=== PATIENT | female | born 1985 | race African-American/Black ===

== ENCOUNTER 2016-10-28 09:17 | Emergency (ER) | payer OTHER ==
[2016-10-28 09:26] VITALS: TEMP 98; BMI 29.0
--- NOTE | 2016-10-28 09:46 | PDOC ---
[id number] Timing/Duration: reports: other Associated Symptoms: reports: shortness of breath, wheezing. denies: cough, fever/chills, nasal congestion, nasal drainage, sore throat <Kaylee DalyAdrián - Last Filed: 10/28/16 11:29> <JoeFavian - Last Filed: 11/01/16 09:17> - General Chief Complaint: Shortness of Breath Stated Complaint: Asthma Time Seen by Provider: 10/28/16 09:26 Past History - Past Medical History Asthma: Yes Other medical history: fibroids - Psycho/Social/Smoking Cessation Hx Suicidal Ideation: No Smoking History: Never smoked Have you smoked in the past 12 months: Yes Information on smoking cessation initiated: No <Greenlandic,KayleeDarin - Last Filed: 10/28/16 11:29> <Favian Diaz - Last Filed: 11/01/16 09:17> - Past Medical History Allergies/Adverse Reactions: Allergies Allergy/AdvReac Type Severity Reaction Status Date / Time Sulfa (Sulfonamide Allergy Severe Verified 10/28/16 09:20 Antibiotics) Home Medications: Ambulatory Orders Albuterol Sulfate [Proair Respiclick] 90 mcg IH DAILY 10/28/16 Fluticasone Propionate [Flovent Diskus] 100 mcg IH DAILY #1 blst.w.dev 10/28/16 Montelukast Na [Singulair -] 10 mg PO HS 10/28/16 Prednisone [Deltasone -] 20 mg PO DAILY #11 tablet 10/28/16 Review of Systems - Review of Systems Constitutional: No: Chills, Fever Respiratory: Yes: Shortness of Breath, Wheezing. No: Cough Cardiac (ROS): No: Chest Pain, Lightheadedness, Palpitations <GreenlandicRainaKayleeAdrián - Last Filed: 10/28/16 11:29> *Physical Exam - Vital Signs Last Vital Signs Temp Pulse Resp BP Pulse Ox 98.0 F 97 H 28 H 134/80 100 10/28/16 09:23 10/28/16 09:23 10/28/16 09:23 10/28/16 09:23 10/28/16 09:23 - Physical Exam General Appearance: Yes: Appropriately Dressed. No: Apparent Distress HEENT: positive: Normal Voice. negative: Scleral Icterus (R), Scleral Icterus ( L) Neck: positive: Supple. negative: Lymphadenopathy (R), Lymphadenopathy (L) Respiratory/Chest: positive: Lungs Clear, Normal Breath Sounds. negative: Respiratory Distress, Wheezing Cardiovascular: positive: Regular Rate, S1, S2 Integumentary: positive: Dry, Warm Neurologic: positive: Fully Oriented, Alert, Normal Mood/Affect <Kaylee DalyAdrián - Last Filed: 10/28/16 11:29> - Vital Signs Last Vital Signs Temp Pulse Resp BP Pulse Ox 98.0 F 73 18 119/73 100 10/28/16 09:23 10/28/16 11:43 10/28/16 11:43 10/28/16 11:43 10/28/16 11:43 <Favian Diaz - Last Filed: 11/01/16 09:17> Heart Score/ECG Review - ECG Intrepretation Comment:: 10/28/16 11:05 Twelve-lead EKG was performed and reviewed by me. There is normal sinus rhythm with a normal rate. The axis is normal. The intervals are normal. There are no ST or T wave abnormalities. Impression: Normal twelve-lead EKG <Raina DalyDarin - Last Filed: 10/28/16 11:29> ED Treatment Course - LABORATORY CBC & Chemistry Diagram: 10/28/16 10:30 10/28/16 10:30 - RADIOLOGY Radiology Studies Ordered: Category Date Time Status CHEST X-RAY PORTABLE* [RAD] Stat Radiology 10/28/16 09:43 Ordered <GreenlandicKayleeDarin - Last Filed: 10/28/16 11:29> - LABORATORY CBC & Chemistry Diagram: 10/28/16 10:30 10/28/16 10:30 - ADDITIONAL ORDERS Additional order review: 10/28/16 10:30 RBC 4.66 MCV 83.7 MCHC 32.6 RDW 15.2 MPV 6.8 L Neutrophils % 45.7 Lymphocytes % 33.9 Monocytes % 9.1 Eosinophils % 9.9 H Basophils % 1.4 - Medications Given in the ED: ED Medications Discontinued Medications Generic Name Dose Route Start Last Admin Trade Name Freq PRN Reason Stop Dose Admin Albuterol/Ipratropium 1 amp 10/28/16 09:45 10/28/16 10:24 Duoneb - NEB 02/03/17 10:31 Not Given Q15M JAIRON <Favian Diaz - Last Filed: 11/01/16 09:17> Medical Decision Making - Medical Decision Making 10/28/16 09:44 10/28/16 09:47 71-year-old female history of asthma on singulair, flovent and albuterol at home , no recent admissions and no history of intubations, presenting with shortness of breath x several days and began wheezing last night, consistent with her asthma. Denies cough, fever or chills. Patient states over the past several months, she has had numerous ED visits for similar symptoms that usually improves with standard asthma treatment in ED. States she completed prednisone burst several days ago. Pt states she is not convinced that this is just her asthma and requesting full workup in ED. States she has been to her doctor multiple times with no additional diagnosis. Patient well-appearing and stable with clear chest/lungs. -nebs -refusing steroids in ED -labs/ekg/cxr -reassess 10/28/16 11:19 Pt improved w/ nebs. Chest/lungs remains clear on re-eval and pt able to ambulate without sob. Pt aware that CXR and labs negative in ED. Rx for prednisone sent to pharmacy which pt states she will fill and take. Stable for discharge w/ pulmonary f/u 10/28/16 11:29 <Vazquez Daly - Last Filed: 10/28/16 11:29> - Medical Decision Making 11/01/16 09:17 The patient was seen and evaluated in conjunction with FABI Almanza under my direct supervision, ancillary studies were reviewed. I agree with the plan as outlined by FABI Daly . <Favian Diaz - Last Filed: 11/01/16 09:17> *DC/Admit/Observation/Transfer <Vazquez Daly - Last Filed: 10/28/16 11:29> <Favian Diaz - Last Filed: 11/01/16 09:17> Diagnosis at time of Disposition: Asthma attack - Discharge Dispostion Disposition: HOME Condition at time of disposition: Improved - Prescriptions Prescriptions: Prednisone [Deltasone -] 20 mg PO DAILY #11 tablet Fluticasone Propionate [Flovent Diskus] 100 mcg IH DAILY #1 blst.w.dev - Referrals Referrals: STAFF,NOT ON [Primary Care Provider] - Rajesh Mccabe MD [Staff Physician] - - Patient Instructions Printed Discharge Instructions: Asthma -- Adult Additional Instructions: Take medications as directed Please follow up with Dr Mccabe of pulmonary
[2016-10-28] MEDS ORDERED: ALBUTEROL SO4 2.5/IPRATROPIUM 0.5 INH SOL 3 ML VIAL.NEB. NEB ONE (09:48)
[2016-10-28] MEDS: ALBUTEROL SO4 2.5/IPRATROPIUM 0.5 INH SOL 3 ML VIAL.NEB. NEB SCH ×2 (10:03→10:24)
[2016-10-28 10:56] LABS: BASOPHIL 1.4 % (0-2.0); EOSINOPHIL 9.9 % (0-4.5); MCH 27.3 pg (25.7-33.7); MCHC 32.6 g/dl (32.0-36.0); MEAN CELL VOLUME 83.7 fl (80-96); MEAN PLT VOLUME 6.8 fl (7.5-11.1); NEUTROPHILS 45.7 % (42.8-82.8); PLATELET COUNT 330 K/MM3 (134-434); RDW 15.2 % (11.6-15.6); WHITE BLOOD COUNT 5.6 K/mm3 (4.0-10.0)
[2016-10-28 11:20] LABS: ALBUMIN 3.5 g/dl (3.4-5.0); ANION GAP 11 (8-16); BILIRUBIN,TOTAL 0.6 mg/dL (0.2-1.0); CALCIUM 9.1 mg/dL (8.5-10.1); CO2 23 mmol/L (21-32); CREATININE 0.9 mg/dL (0.55-1.02); GLUCOSE,RANDOM 100 mg/dL (74-106); SGOT/AST 9 U/L (15-37); SGPT/ALT 14 U/L (12-78)
[2016-10-28 11:22] LABS: ALK PHOS 48 U/L (45-117); TROPONIN I < 0.02 ng/ml (0.00-0.05)
--- NOTE | 2016-10-28 11:36 | PDOC ---
*Physical Exam - Vital Signs Last Vital Signs Temp Pulse Resp BP Pulse Ox 98.0 F 67 28 H 134/80 100 10/28/16 09:23 10/28/16 10:15 10/28/16 09:23 10/28/16 09:23 10/28/16 10:15 ED Treatment Course - LABORATORY CBC & Chemistry Diagram: 10/28/16 10:30 10/28/16 10:30 - ADDITIONAL ORDERS Additional order review: Laboratory Results 10/28/16 10:30 Sodium 140 Potassium 3.9 Chloride 106 Carbon Dioxide 23 Anion Gap 11 BUN 14 Creatinine 0.9 Creat Clearance w eGFR > 60 Random Glucose 100 Calcium 9.1 Total Bilirubin 0.6 AST 9 L ALT 14 Alkaline Phosphatase 48 Creatine Kinase 38 Troponin I < 0.02 Total Protein 7.0 Albumin 3.5 10/28/16 10:30 RBC 4.66 MCV 83.7 MCHC 32.6 RDW 15.2 MPV 6.8 L Neutrophils % 45.7 Lymphocytes % 33.9 Monocytes % 9.1 Eosinophils % 9.9 H Basophils % 1.4 - RADIOLOGY Radiology Studies Ordered: Category Date Time Status CHEST X-RAY PORTABLE* [RAD] Stat Radiology 10/28/16 09:43 Completed - Medications Given in the ED: ED Medications Discontinued Medications Generic Name Dose Route Start Last Admin Trade Name Freq PRN Reason Stop Dose Admin Albuterol/Ipratropium 1 amp 10/28/16 09:45 10/28/16 10:24 Duoneb - NEB 10/28/16 10:31 Not Given Q15M JAIRON *DC/Admit/Observation/Transfer Diagnosis at time of Disposition: Asthma attack - Discharge Dispostion Disposition: HOME Condition at time of disposition: Improved - Prescriptions Prescriptions: Prednisone [Deltasone -] 20 mg PO DAILY #11 tablet Fluticasone Propionate [Flovent Diskus] 100 mcg IH DAILY #1 blst.w.dev - Referrals Referrals: Rajesh Mccabe MD [Staff Physician] - STAFF,NOT ON [Primary Care Provider] - - Patient Instructions Printed Discharge Instructions: Asthma -- Adult Additional Instructions: Take medications as directed Please follow up with Dr Mccabe of pulmonary - Post Discharge Activity
[2016-10-28 11:46] VITALS: BP 119/73; PULSE 73
--- NOTE | 2016-11-02 13:45 | EKG ---
Test Reason : Blood Pressure : / mmHG Vent. Rate : 066 BPM Atrial Rate : 066 BPM P-R Int : 162 ms QRS Dur : 084 ms QT Int : 420 ms P-R-T Axes : 051 058 045 degrees QTc Int : 440 ms NORMAL SINUS RHYTHM NORMAL ECG NO PREVIOUS ECGS AVAILABLE Confirmed by KANWAL CHAKRABORTY, ABDULLAHI ([id number]) on 11/02/2016 1:44:46 PM Referred By: Confirmed By:ABDULLAHI SCHOFIELD MD
== END 2016-10-28 11:46 | disposition home or self-care (01) ==
LOC: JER 09:17
DX: J45.901 Unspecified asthma with (acute) exacerbation (principal)
CPT/HCPCS: 36415; 71010-TC; 80053; 82550; 84484; 85025; 93005; 93010; 99283-25